=== PATIENT | male | born 1970 | race Caucasian/White ===

== ENCOUNTER 2024-09-06 07:13 | Inpatient (IN) ==
--- NOTE | 2024-09-06 07:36 | Emergency Department Note ---
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 Minimal history aware on patient as he is acutely psychotic and altered on arrival. Appears he is from [place] and he may or may not be on olanzapine as an outpatient per pharmacy review. Patient was initially given some IV Ativan with mild improvement but continued to be tangential walking around the rooms and trying to escape. He was given initial 5 mg of Zyprexa without much improvement thus 10 mg were given and he did seem a bit calmer. Laboratory workup is remarkable for an elevated CK consistent with him likely having not eaten for several days and walking around in the cold. No evidence of trauma by examination and police report there is no evidence of trauma to the vehicle that he had been in. CT of the head was obtained was unremarkable. Other laboratory workup shows mildly elevated LFTs nonspecific significant given the CK elevation. In the setting of acute psychosis but minimal known history and the abnormal labs and think he requires further medical workup. At this point I do not feel it would be safe to be allowing the patient to discharge to her own recognizance as he is unable to understand his current situation. Triage/Nursing Notes reviewed by Me Differential:Mood disorder, infection, hypoglycemia, electrolyte abnormalities, cardiac sources, intracerebral event, toxicologic, trauma, neurologic, as well as other pathologies. Vital Signs: reviewed and remarkable for hypertensive, tachycardic on arrival Interventions: Normal saline bolus 1 L IV x 2, Ativan 1 mg and Ativan 2 mg IV, Zyprexa 5 mg and then 10 mg p.o. Labs:ED labs Reviewed by me and remarkable for elevated CK, mildly elevated LFTs Imaging:CT of the head without contrast as per my informal interpretation there is no intracranial hemorrhage or mass effect appreciated EKG:As per my interpretation. Indication altered mental status. Sinus tachycardia at 113 bpm QTc of 463. There is no ectopy nor ischemia. No previous for comparison Cardiac/Tele Monitoring: Cardiac Monitoring: An Order was placed for continuous cardiac monitoring. The monitor shows a rate of 110 with a sinus tach rhythm. Consults:Dr Gisela ARROYO Hospitalist. Case management did evaluate the patient agrees with acute psychosis and does not seem capable of understanding situation or making decisions at this time. I concur with this assessment. Plan: Disposition:Hospitalization. Condition: Good History of Present Illness: 54-year-old gentleman arrives for evaluation mental health. Patient was reportedly ambulating down the road leaving his car behind him when police came to him. Patient with minimal lucidity and difficult to get full history though seems he may have stopped his medications for at least the last week. Patient reporting having driven all over the country unclear whether this is accurate or not. No reported trauma or injuries. Patient without any complaints. Patient is relatively all over the place with regards to speaking and getting actual history is quite difficult. Past Medical History: Unknown though seems underlying bipolar disorder based on patient's statement Home Medications: Possibly olanzapine, rosuvastatin, trazodone per outpatient records Allergies:nkda Vitals:Blood Pressure: 151/97, Pulse 126, RR 20, T 36.6C, O2 96% on RA Physical Exam: GENERAL: Patient is unkempt, anxious, agitated appearing and in mild distress. RESPIRATORY: No dyspnea. Clear to auscultation and equal bilaterally. CARDIOVASCULAR: Regular rate and rhythm.No murmur appreciated. EXTREMITIES: Normal motion all extremities, no cyanosis, no edema. NEUROLOGIC: Alert but not oriented. No focal neurologic deficits appreciated SKIN: No rash, no jaundice, no diaphoresis. PSYCH: Patient just traveled tangential getting lost and thought looking off into space. Denies suicidal homicidal ideation. Cranial nerves grossly intact GCS: 15 ED Course: Times/Reassessments: Gradually improving agitation though continued psychosis. Sajan Del Angel MD Past Med/Surg History Problem List (Updated 09/06/24 @ 13:14 by Sajan Del Angel MD) Rhabdomyolysis (Acute) Acute psychosis (Acute) Acute psychosis Acute sinusitis Transaminitis Elevated WBCs Rhabdomyolysis Altered mental state Medical History (Updated 09/06/24 @ 13:14 by Sajan Del Angel MD) Medical history unknown Surgical History (Updated 09/06/24 @ 12:51 by Nael Higgins MD) Surgical history unknown Social History Smoking Status: Current every day smoker Preferred Language: Slovak Feels Safe at Home: Yes Allergies Allergies Allergy/AdvReac Type Severity Reaction Status Date / Time Unable to Assess Allergy Unverified 09/06/24 09:25 Home Meds Home Medications Medication Instructions Recorded Confirmed olanzapine 20 mg tablet 20 mg PO DAILY 09/06/24 09/06/24 rosuvastatin 10 mg tablet 10 mg PO DAILY 09/06/24 09/06/24 trazodone 100 mg tablet 100 mg PO HS 09/06/24 09/06/24 Results & Data (ED) Vital Signs Vital Signs - 24 hr 09/06/24 07:18 09/06/24 07:59 09/06/24 07:59 Temperature 36.6 C Temperature Source Temporal Artery Scan Pulse Rate 126 H Pulse Rate [Apical] 102 H Pulse Rhythm [Apical] Pulse Strength [Apical] Respiratory Rate 20 32 H Respiratory Effort / Characteristics Non-Labored Spontaneous Respiratory Depth Normal Respiratory Pattern Blood Pressure 151/97 H Blood Pressure [Right Arm] 136/89 Blood Pressure Mean 115 Blood Pressure Mean [Right Arm] 104 Blood Pressure Position [Right Arm] Pulse Oximetry 96 95 96 Oxygen Delivery Method Room Air Room Air Room Air Sepsis Recent Fever Within 48 Hours No Sepsis New/Unexplained Change in Mental Status N/A Sepsis Action Taken by Nursing No Action Required 09/06/24 08:03 09/06/24 09:37 09/06/24 11:40 Temperature 36.8 C Temperature Source Oral Pulse Rate 106 H Pulse Rate [Apical] 104 H 116 H Pulse Rhythm [Apical] Regular Pulse Strength [Apical] Normal Respiratory Rate 19 20 Respiratory Effort / Characteristics Non-Labored Spontaneous Non-Labored Respiratory Depth Normal Normal Respiratory Pattern Regular Blood Pressure Blood Pressure [Right Arm] 134/89 140/84 Blood Pressure Mean Blood Pressure Mean [Right Arm] 104 102 Blood Pressure Position [Right Arm] Semi-fowlers Sitting Pulse Oximetry 96 96 Oxygen Delivery Method Room Air Room Air Sepsis Recent Fever Within 48 Hours Sepsis New/Unexplained Change in Mental Status Sepsis Action Taken by Nursing Laboratory Data 09/06/24 07:55 09/06/24 07:55 Lab Results 09/06/24 09/06/24 09/06/24 Range/Units 07:36 07:55 07:59 WBC 13.93 H (4.8-10.8) K/ul RBC 4.74 (4.70-6.10) M/uL Hgb 15.9 (14.0-18.0) g/dl Hct 46.5 (42.0-52.0) % MCV 98.1 (80.0-100.0) fL MCH 33.5 (25.0-34.0) pg MCHC 34.2 (32.0-36.0) g/dL RDW Std Deviation 54.1 H (36.4-46.3) fL RDW Coeff of Justin 14.9 H (11.5-14.5) % Plt Count 171 (130-400) K/uL MPV 10.7 (9.4-12.4) fL Immature Gran % (Auto) 0.8 % Neut % (Auto) 82.5 % Lymph % (Auto) 5.3 % [place] % (Auto) 10.9 % Eos % (Auto) 0.1 % Baso % (Auto) 0.4 % Neut # (Auto) 11.50 H (1.40-6.50) K/uL Lymph # (Auto) 0.74 L (1.20-3.40) K/uL [place] # (Auto) 1.52 H (0.11-0.59) K/uL Eos # (Auto) 0.01 (0.00-0.50) K/uL Baso # (Auto) 0.05 (0.00-0.20) K/uL Immature Gran # (Auto) 0.11 (0.01-0.20) K/uL Sodium 142 (136-145) mmol/L Potassium 4.4 (3.5-5.1) mmol/L Chloride 102 (98-107) mmol/L Carbon Dioxide 25 (21-32) mmol/L Anion Gap 15 H (3-11) BUN 14 (6-23) mg/dl Creatinine 0.85 (0.6-1.4) mg/dl Est Cr Clr Drug Dosing 102.1 ml/min eGFR 103.90 BUN/Creatinine Ratio 16.5 (10-20) Glucose 88 (70-99(Fasting)) mg/dl POC Glucose 92 (70-99) mg/dl Calcium 9.9 (8.6-10.3) mg/dl Total Bilirubin 1.6 H (0.2-1.0) mg/dl AST 105 H (13-39) U/L ALT 129 H (7-52) U/L Alkaline Phosphatase 91 (34-104) U/L Total Creatine Kinase 1022 H (30-223) U/L C-Reactive Protein 4.99 H (0-0.5) mg/dl Total Protein 8.3 (6.0-8.3) gm/dl Albumin 4.8 (3.4-5.0) gm/dl Globulin 3.5 (2.5-4.0) gm/dl Albumin/Globulin Ratio 1.4 (0.9-2) Procalcitonin 0.25 (0-0.5) ng/ml TSH 2.607 (0.300-4.500) uIu/ml Salicylates < 3.0 L (3.0-30) mg/dl Acetaminophen < 3 L (10-30) ug/ml Valproic Acid < 10 L (50-100) mcg/ml [place] < 0.1 L (0.6-1.2) mmol/L Ethyl Alcohol mg/dL < 10.0 (<10.0) mg/dl SARS-CoV-2, RNA, NAAT NEGATIVE (NEGATIVE) Administered Medications Discontinued Medications Sodium Chloride (Nss) 1,000 mls @ 999 mls/hr IV .Q1H1M ONE Stop: 09/06/24 08:34 Last Infusion: 09/06/24 09:02 Dose: Infused Documented By: Admin: 09/06/24 07:56 Dose: 999 mls/hr Documented By: OLIVA Sodium Chloride (Nss) 1,000 mls @ 999 mls/hr IV .Q1H1M ONE Stop: 09/06/24 10:57 Last Infusion: 09/06/24 12:42 Dose: Infused Documented By: Admin: 09/06/24 11:17 Dose: 999 mls/hr Documented By: STEPH Lorazepam (Lorazepam 1 Mg/1 Ml Syr Ed Inj Use) 1 mg IV ONE STA Stop: 09/06/24 07:35 Last Admin: 09/06/24 07:56 Dose: 1 mg Documented By: OLIVA Lorazepam (Lorazepam 1 Mg/1 Ml Syr Ed Inj Use) 2 mg IV ONE STA Stop: 09/06/24 08:59 Last Admin: 09/06/24 09:02 Dose: 2 mg Documented By: OLIVA Olanzapine (Olanzapine 5 Mg Tablet) 5 mg PO NOW STA Stop: 09/06/24 09:18 Last Admin: 09/06/24 09:33 Dose: 5 mg Documented By: ELISHA Olanzapine (Olanzapine 10 Mg Tab) 10 mg PO NOW STA Stop: 09/06/24 10:54 Last Admin: 09/06/24 11:38 Dose: 10 mg Documented By: STEPH Imaging Data Radiologist's Impression: Head CT 09/06/24 07:34 CT head/brain wo con CLINICAL HISTORY: 54 years-old Male with ams. Acutely altered mental status TECHNIQUE: Multiple axial CT images of the head were obtained without contrast. A dose lowering technique was utilized adhering to the principles of ALARA. CT DOSE: 625.8 mGy.cm COMPARISON: None. FINDINGS: No acute intracranial hemorrhage, midline shift, intracranial mass, hydrocephalus, territorial ischemia or abnormal extra-axial collection. The calvarium is intact. Moderate mucosal thickening with air-fluid level on the right maxillary sinus. Mastoid air cells are clear. Unremarkable soft tissues and orbits. IMPRESSION: 1. No acute intracranial abnormality. 2. Acute on chronic right maxillary sinus disease. ACT 112: Negative or not required by law. The above report was generated using voice recognition software. It may contain grammatical, syntax or spelling errors. Electronically signed by: Jadon Penn M.D. 09/06/2024 9:05 AM Chest X-Ray 09/06/24 11:57 XR chest 1V portable HISTORY: 54 years-old Male altered mental status change acutely altered mental status COMPARISON: None TECHNIQUE: AP view the chest FINDINGS: Cardiac silhouette is upper limits of normal in size. No pneumothorax. Possible pulmonary vascular congestion. Mild ill-defined bibasilar densities with blunting of the costophrenic angles. Bones appear grossly intact. IMPRESSION: 1. Cardiomegaly with pulmonary vascular congestion. 2. Trace pleural effusions with mild bibasilar densities, likely atelectatic. ACT 112: Negative or not required by law. The above report was generated using voice recognition software. It may contain grammatical, syntax or spelling errors. Electronically signed by: Jadon Penn M.D. 09/06/2024 12:21 PM Discharge Plan Visit Data Chief Complaint: Altered Mental Status Stated Complaint: FOUND WALKING IN THE COLD,BIPOLAR DISORDER ED Provider: Sajan Del Angel Discharge Problem: Acute psychosis, Rhabdomyolysis Forms Stand Alone Forms: [facility] Prescriptions Prescriptions: No Action trazodone 100 mg tablet 100 mg PO HS olanzapine 20 mg tablet 20 mg PO DAILY rosuvastatin 10 mg tablet 10 mg PO DAILY Referrals Referrals: PCP,NO [Primary Care Provider] - Discharge Problem: Rhabdomyolysis Qualifiers: Rhabdomyolysis type: non-traumatic Qualified Code(s): M62.82 - Rhabdomyolysis
[2024-09-06] MEDS: LORazepam 1 MG/1 ML SYR ED Inj Use IV STA ×2 (07:56→09:02)
[2024-09-06] MEDS: SODIUM CHLORIDE 0.9% 1,000 ML IV ONE ×2 (07:56→11:17)
[2024-09-06 08:18] LABS: Basophils # (auto) 0.05 K/uL (0.00-0.20); Basophils % (auto) 0.4 %; Eosinophils # (auto) 0.01 K/uL (0.00-0.50); Eosinophils % (auto) 0.1 %; Hematocrit (blood only) 46.5 % (42.0-52.0); Hemoglobin 15.9 g/dl (14.0-18.0); Immature Granulocytes # (auto) 0.11 K/uL (0.01-0.20); Immature Granulocytes % (auto) 0.8 %; Lymphocytes # (auto) 0.74 K/uL (1.20-3.40); Lymphocytes % (auto) 5.3 %; Mean Corpuscular Hemoglobin 33.5 pg (25.0-34.0); Mean Corpuscular Hgb Conc 34.2 g/dL (32.0-36.0); Mean Corpuscular Volume 98.1 fL (80.0-100.0); Mean Platelet Volume 10.7 fL (9.4-12.4); Monocytes # (auto) 1.52 K/uL (0.11-0.59); Monocytes % (auto) 10.9 %; Neutrophils % (auto) 82.5 %; Platelet Count 171 K/uL (130-400); RDW Coefficient of Variation 14.9 % (11.5-14.5); RDW Standard Deviation 54.1 fL (36.4-46.3); Red Blood Count 4.74 M/uL (4.70-6.10); White Blood Count 13.93 K/ul (4.8-10.8)
[2024-09-06 08:34] LABS: Albumin Globulin Ratio 1.4 (0.9-2); Albumin Level 4.8 gm/dl (3.4-5.0); BUN Creatinine Ratio 16.5 (10-20); Bilirubin,Total 1.6 mg/dl (0.2-1.0); Calcium 9.9 mg/dl (8.6-10.3); Creatinine Clr Calc Pharmacy 102.1 ml/min; Globulin 3.5 gm/dl (2.5-4.0); Potassium 4.4 mmol/L (3.5-5.1); Total Protein 8.3 gm/dl (6.0-8.3)
[2024-09-06 08:49] LABS: Thyroid Stimulating Hormone 2.607 uIu/ml (0.300-4.500)
[2024-09-06 08:50] LABS: Acetaminophen < 3 ug/ml (10-30); Salicylate < 3.0 mg/dl (3.0-30)
--- NOTE | 2024-09-06 09:06 | CT Scan Report ---
CT head/brain wo con CLINICAL HISTORY: 54 years-old Male with ams. Acutely altered mental status TECHNIQUE: Multiple axial CT images of the head were obtained without contrast. A dose lowering tech nique was utilized adhering to the principles of ALARA. CT DOSE: 625.8 mGy.cm COMPARISON: None. FINDINGS: No acute intracranial hemorrhage, midline shift, intracranial mass, hydrocephalus, territorial ischem ia or abnormal extra-axial collection. The calvarium is intact. Moderate mucosal thickening with air-fluid level on the right maxillary sin us. Mastoid air cells are clear. Unremarkable soft tissues and orbits. IMPRESSION: 1. No acute intracranial abnormality. 2. Acute on chronic right maxillary sinus disease. ACT 112: Negative or not required by law. The above report was generated using voice recognition software. It may contain grammatical, syntax o r spelling errors. Electronically signed by: Jadon Penn M.D. 09/06/2024 9:05 AM
[2024-09-06 09:14] LABS: Lithium < 0.1 mmol/L (0.6-1.2); Valproic Acid < 10 mcg/ml (50-100)
[2024-09-06] MEDS: OLANZapine 5 MG TABLET PO STA (09:33)
[2024-09-06] MEDS: OLANZapine 10 MG TAB PO STA (11:38)
--- NOTE | 2024-09-06 12:21 | History & Physical Report ---
Date of Service September 06, 2024 Assessment & Plan (1) Altered mental state: Plan: Disorientated to place and time. Disordered thinking. Suspected acute psychosis (possibly not taking his usual olanzapine) - 15mg PO olanzapine given in ER, will give additional 5mg to make up his usual 20mg dose, consult psychiatry Possible exacerbated by acute sinusitis - see below Salicylate, acetaminophen, valproic acid, lithium, alcohol levels were negative UA pending collection Urine drug profile pending collection (2) Acute sinusitis: Plan: Seen in CT. Patient history unreliable. Biofire PCR ordered Start Augmentin 875mg PO BID as possible cause of acute psychosis (3) Rhabdomyolysis: Plan: CK 1022 on admission IV fluids (4) Elevated WBCs: Plan: Possible stress reaction, CRP and procalcitonin added to prior labs, if procalcitonin elevated will get blood cultures (5) Transaminitis: Plan: No abdominal pain on exam Suspect related to rhabdo, repeat levels in AM with INR, Plt normal Hold statin (6) Acute psychosis: Plan VTE Prophylaxis - Lovenox 40mg SQ daily Diet -regular Disposition - admit to med/tele Admission and Anticipated Discharge Date Admission Date: September 06, 2024 History of Present Illness Chief Complaint: Altered mental state Primary Care Provider: NO PCP Víctor Pathak is a 54 year ol male who presents to the ER with altered mental state after being picked up by police [place] [address]. He told triage he was driving from [place] to [facility] and drinking a lot of [employer]. He tells me he is the in the emergency room due to dry mouth as he was in the [facility] in [place]. When asked directly why he came to [place], [place] he tells me he just went for a drive. He is able to remember his medications of olanzapine and trazodone and tells me he has been taking them. He does remember he was taking gabapentin previously when prompted but he stopped as it wasn't working and he thinks he was on it for psoriasis. When asked about his doctors names he is able to tell me the name of his family physician Dr Durand. On review of external pharmacy list he appears to have picked up prescription for olanzapine, rosuvastatin and trazodone on September 04 in [place], [place] which appears to be his regular pharmacy store. His psychiatric medications are p rescribed by [facility] of [facility] Jacobsen MD. I left a message on the answering system but there is no one picking up the phone at time of admission ([phone]). His family physician suspected to be Dr Leti Durand MD also in [place], [place] based on prior prescriptions for pregabalin (last picked up 30 day prescription in May for 50mg PO daily), gabapentin (prior to the pregabalin at 300mg PO TID) and terbinafine (prescription from January to March). Left message with PCP office ([phone]) in addition to call back. Allergies Allergy/AdvReac Type Severity Reaction Status Date / Time Unable to Assess Allergy Unverified 09/06/24 09:25 Home Medications Medication Instructions Recorded Confirmed Type olanzapine 20 mg tablet 20 mg PO DAILY 09/06/24 09/06/24 History rosuvastatin 10 mg tablet 10 mg PO DAILY 09/06/24 09/06/24 History trazodone 100 mg tablet 100 mg PO HS 09/06/24 09/06/24 History Past Med/Surg History Problem List (Updated 09/06/24 @ 12:51 by Nael Higgins MD) Acute psychosis Acute sinusitis Transaminitis Elevated WBCs Rhabdomyolysis Altered mental state Medical History (Updated 09/06/24 @ 12:51 by Nael Higgins MD) Medical history unknown Surgical History (Updated 09/06/24 @ 12:51 by Nael Higgins MD) Surgical history unknown Social History Smoking Status: Current every day smoker Preferred Language: Yakut Feels Safe at Home: Yes Review of Systems Review of Systems: All systems reviewed & are unremarkable except as noted in HPI & below Physical Exam Constitutional: WD/WN, vitals as above ENMT: external ear and nose normal, oropharynx normal Respiratory: normal respiratory effort, lungs clear to auscultation Cardiovascular: RRR, no murmur, no edema Gastrointestinal (Abdomen): normal bowel sounds, soft, nontender, no hepatosplenomegaly Skin: no rashes, warm and dry (no areas of cellulitis seen) Psychiatric: Orientation: alert and oriented to person; + not oriented to place and + not oriented to time Eye Contact: + fair eye contact Thought Process: + tangential thought process Results & Data Results & Data Vital Signs (Past 12 Hours) Vital Signs Temp Pulse Pulse Resp BP BP Pulse Ox 09/06/24 11:40 36.8 C 116 H 20 140/84 96 09/06/24 09:37 104 H 19 134/89 96 09/06/24 08:03 106 H 09/06/24 07:59 102 H 32 H 136/89 96 09/06/24 07:59 95 09/06/24 07:18 36.6 C 126 H 20 151/97 H 96 O2 Del Method 09/06/24 11:40 Room Air 09/06/24 09:37 Room Air 09/06/24 08:03 09/06/24 07:59 Room Air 09/06/24 07:59 Room Air 09/06/24 07:18 Room Air Laboratory Results Abnormal lab results 09/06/24 Range/Units 07:55 WBC 13.93 H (4.8-10.8) K/ul RDW Std Deviation 54.1 H (36.4-46.3) fL RDW Coeff of Justin 14.9 H (11.5-14.5) % Neut # (Auto) 11.50 H (1.40-6.50) K/uL Lymph # (Auto) 0.74 L (1.20-3.40) K/uL [place] # (Auto) 1.52 H (0.11-0.59) K/uL Anion Gap 15 H (3-11) Total Bilirubin 1.6 H (0.2-1.0) mg/dl AST 105 H (13-39) U/L ALT 129 H (7-52) U/L Total Creatine Kinase 1022 H (30-223) U/L Salicylates < 3.0 L (3.0-30) mg/dl Acetaminophen < 3 L (10-30) ug/ml Valproic Acid < 10 L (50-100) mcg/ml [place] < 0.1 L (0.6-1.2) mmol/L Diagnostic Findings CT head/brain wo con CLINICAL HISTORY: 54 years-old Male with ams. Acutely altered mental status TECHNIQUE: Multiple axial CT images of the head were obtained without contrast. A dose lowering technique was utilized adhering to the principles of ALARA. CT DOSE: 625.8 mGy.cm COMPARISON: None. FINDINGS: No acute intracranial hemorrhage, midline shift, intracranial mass, hydrocephalus, territorial ischemia or abnormal extra-axial collection. The calvarium is intact. Moderate mucosal thickening with air-fluid level on the right maxillary sinus. Mastoid air cells are clear. Unremarkable soft tissues and orbits. IMPRESSION: 1. No acute intracranial abnormality. 2. Acute on chronic right maxillary sinus disease. XR chest 1V portable HISTORY: 54 years-old Male altered mental status change acutely altered mental status COMPARISON: None TECHNIQUE: AP view the chest FINDINGS: Cardiac silhouette is upper limits of normal in size. No pneumothorax. Possible pulmonary vascular congestion. Mild ill-defined bibasilar densities with blunting of the costophrenic angles. Bones appear grossly intact. IMPRESSION: 1. Cardiomegaly with pulmonary vascular congestion. 2. Trace pleural effusions with mild bibasilar densities, likely atelectatic. Medications Administered ER medications given: Lorazepam 1 mg IV Normal saline 1 L bolus Lorazepam 2 mg IV Olanzapine 5 mg p.o. Normal saline 1 L bolus Olanzapine 10 mg p.o. ECG Rate (beats per minute): 113 Rhythm: sinus tachycardia Findings: no acute ischemic change Comparison ECG Date: no prior available Code Status & VTE Plan Code Status Full - presumed, patient with altered mental state VTE Prophylaxis Plan VTE Prophylaxis will be ordered: Yes PG Care Time/CCT Total # of Minutes Spent Total Time Spent with Patient: Total time spent is greater than 50% in coordination of care (as documented) at patient's floor/unit and/or counseling patient: Coding Level of Care Code 19432 INT INP/OBS CARE 3/75MIN Diagnoses Disorientation R41.0 Altered mental status type: disorientation Acute non-recurrent maxillary sinusitis J01.00 Sinusitis location: maxillary Recurrence: non-recurrent Non-traumatic rhabdomyolysis M6.82 Rhabdomyolysis type: non-traumatic Elevated WBCs D72.829 Transaminitis R74.01 Acute psychosis F23 (1) Altered mental state Altered mental status type: disorientation Qualified Code(s): R41.0 - Disorientation, unspecified (2) Acute sinusitis Sinusitis location: maxillary Recurrence: non-recurrent Qualified Code(s): J01.00 - Acute maxillary sinusitis, unspecified (3) Rhabdomyolysis Rhabdomyolysis type: non-traumatic Qualified Code(s): M62.82 - Rhabdomyolysis
--- NOTE | 2024-09-06 12:22 | XRay Report ---
XR chest 1V portable HISTORY: 54 years-old Male altered mental status change acutely altered mental status COMPARISON: None TECHNIQUE: AP view the chest FINDINGS: Cardiac silhouette is upper limits of normal in size. No pneumothorax. Possible pulmonary vascular co ngestion. Mild ill-defined bibasilar densities with blunting of the costophrenic angles. Bones appear grossly intact. IMPRESSION: 1. Cardiomegaly with pulmonary vascular congestion. 2. Trace pleural effusions with mild bibasilar densities, likely atelectatic. ACT 112: Negative or not required by law. The above report was generated using voice recognition software. It may contain grammatical, syntax o r spelling errors. Electronically signed by: Jadon Penn M.D. 09/06/2024 12:21 PM
[2024-09-06 12:55] LABS: C Reactive Protein 4.99 mg/dl (0-0.5)
[2024-09-06] MEDS: OLANZapine 5 MG TABLET PO ONE (13:14)
[2024-09-06 13:29] LABS: Appearance Urine Clear (Clear); Bacteria Urine Automated None Seen (None Seen); Bilirubin Urine Negative (Negative); Blood Urine Negative (Negative); Cast Urine Automated 0-2 /lpf (0-2); Color Urine Dark Yellow; Epithelial Cell Urine Auto 0-2 /hpf (0-2); Glucose Urine UA Negative (Negative); Ketones Urine 4+ (Negative); Leukocyte Esterase Urine Negative (Negative); Nitrite Urine Negative (Negative); Protein Urine 1+ (Negative); RBC Urine Automated 0-2 /hpf (0-2); Urobilinogen Urine Negative (Negative); WBC Urine Automated 0-5 /hpf (0-5)
[2024-09-06 13:58] LABS: Adenovirus PCR Not Detected (NotDetected); Bordetella parapertussis PCR Not Detected (NotDetected); Bordetella pertussis PCR Not Detected (NotDetected); Chlamydia pneumoniae PCR Not Detected (NotDetected); Coronavirus 229E PCR Not Detected (NotDetected); Coronavirus CoV-2 (COVID19)PCR Not Detected (NotDetected); Coronavirus HKU1 PCR Not Detected (NotDetected); Coronavirus NL63 PCR Not Detected (NotDetected); Coronavirus OC43PCR Not Detected (NotDetected); Human Metapneumovirus PCR Not Detected (NotDetected); Influenza A PCR Not Detected (NotDetected); Influenza B PCR Not Detected (NotDetected); Mycoplasma pneumoniae PCR Not Detected (NotDetected); Parainfluenza Virus 1 PCR Not Detected (NotDetected); Parainfluenza Virus 2 PCR Not Detected (NotDetected); Parainfluenza Virus 3 PCR Not Detected (NotDetected); Parainfluenza Virus 4 PCR Not Detected (NotDetected); Respiratory Syncytial VirusPCR Not Detected (NotDetected); Rhinovirus/Enterovirus PCR Not Detected (NotDetected)
[2024-09-06 14:11] LABS: Amphetamines+Metham, Urine Neg (Neg); Barbiturates, Urine Neg (Neg); Benzodiazepine, Urine Neg (Neg); Cocaine, Urine Neg (Neg); Fentanyl, Urine Neg (Neg); MDMA (Ecstacy), Urine Neg (Neg); Marijuana, Urine Neg (Neg); Methadone, Urine Neg (Neg); Opiate, Urine Neg (Neg); Phencyclidine, Urine Neg (Neg)
[2024-09-06] MEDS: SODIUM CHLORIDE 0.9% 1,000 ML IV SCH (18:01)
[2024-09-06] MEDS: AMOXICILLIN/CLAVULANATE 875 MG TAB PO SCH (18:18)
[2024-09-06] MEDS: ENOXAPARIN INJ 40 MG/0.4 ML SYR SQ SCH (20:34)
[2024-09-06] MEDS: OLANZapine 5 MG TABLET PO PRN (20:52)
--- NOTE | 2024-09-06 21:27 | Electrocardiogram Report ---
Test Reason : Blood Pressure : */* mmHG Vent. Rate : 113 BPM Atrial Rate : 113 BPM P-R Int : 188 ms QRS Dur : 78 ms QT Int : 338 ms P-R-T Axes : 41 62 54 degrees QTcB Int : 463 ms Sinus tachycardia Possible Left atrial enlargement Anterior infarct , age undetermined Abnormal ECG No previous ECGs available Confirmed by Antwon Vasquez ([id number]) on 09/06/2024 9:26:41 PM Referred By: REFERRED SELF Confirmed By: Antwon Vasquez
--- NOTE | 2024-09-07 07:36 | Hospitalist Progress Note ---
Date of Service September 07, 2024 Assessment & Plan (1) Altered mental state: (2) Acute sinusitis: (3) Rhabdomyolysis: (4) Transaminitis: (5) Acute psychosis: Plan #Altered mental status #Acute Psychosis vs. Dissociative Fugue vs. Kassandra vs. Wernicke's Encephalopathy - ED course: disoriented to place and time; disordered thinking; possible medical noncompliance -- Given 20 mg of Olanzapine PO and 3 mg of Lorazepam IV -- Drug urine screen (-) and viral panel (-) -- Head CT: chronic right maxillary sinusitis -- CXR: cardiomegaly with pulmonary congestion and possible atelectasis -- UA: notable for 4+ ketones - Psychiatry onboard - Attempting to consult [place] providers & contact ex- for corroboration - Olanzapine 20 mg QD - Thiamine 500 mg IV TID - Consider BID/TID mental status checks to get baseline #Sinusitis - Seen in CT. Patient history unreliable. - Negative Biofire PCR - Augmentin 875mg PO BID as possible cause of acute psychosis #Rhabdomyolysis - Possibly due to limited PO intake and walking in the cold - CK 1022 on admission -- Downtrending 414 (09/07) - IV fluids #Transaminitis - No abdominal pain on admitting exam - Suspect related to rhabdomyolysis - INR and Plt: WNL - Statin restarted (09/07) VTE Prophylaxis - Lovenox 40mg SQ daily Diet -regular Disposition - med/tele Admission and Anticipated Discharge Date Admission Date: September 06, 2024 Supervising Physician Co-Signing Physician Notes I personally examined the patient and verified all alvarado points of history and exam, discussed case, and agree with decision making with Aaliyah Marcus MS4 and Dr Street No somatic complaints. Confused and does not really know where he is or why he is here. Is vaguely able to recall some events of his life noting that he believes he is currently unemployed. Notes that we could reach out to contact h is ex- if we are able to reach her and gave her phone number to psychiatry. Vitals noted, in general he is awake disoriented but pleasant calm no distress. HEENT normocephalic atraumatic mucous membranes moist. Breathing unlabored no accessory muscle use good effort. Skin without rashes pallor or icterus. Neuro without focal deficits. Oriented to person, does not know place or situation confusion/altered mental statusbroad differentialdoes not appear to be manic, does not appear to be responding to external stimuli. Transient global amnesia considered but in my experience these are much more short-lived than his current episode. Wernicke/course of cough considered and thiamine started. Polypharmacy considered but he does not appear sedated/slurring/other findings that would be anticipated. Fugue state considered. Need to continue to follow closely. Appreciate psychiatry input. Subjective Mr. Alston was seen at bedside with Dr. Pozo, Dr. Street, and Dr. Vela. He states that he feels confused. He mentioned that he does not know how he got here, but is a resident of [place]. He was unable to descri be our location, for which he was oriented to the location being [facility] in [place], [place]. 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 When asked about family or friend contacts, he requested that his ex- be updated about his situation. Otherwise, he has no further questions, comments, or concerns. Review of Systems Review of Systems: Per HPI Physical Exam Constitutional: Laying comfortably in bed In no apparent distress Appeared tired Eyes: Looked at speaking persons without noticeable ophthalmoplegia ENMT: No thyromegaly [place] midline Respiratory: Respiratory effort appropriate for situation Conversational without shortness of breath No accessory respiratory muscle use Psychiatric: Orientation: alert and oriented to person Apperance: + disheveled Eye Contact: good eye contact Motor Behavior: no abnormal motor movements Speech: normal rate/rhythm/volume of speech Affect: + flat affect Thought Process: clear/coherent thought process Appears thoughts are logical and linear Memory to recent and distant events limited Results & Data Results & Data Vital Signs (Past 12 Hours) Vital Signs Pulse Resp BP Pulse Ox O2 Del Method 09/07/24 00:05 75 16 109/75 96 Room Air (1) Altered mental state Altered mental status type: disorientation Qualified Code(s): R41.0 - Disorientation, unspecified (2) Acute sinusitis Recurrence: non-recurrent Sinusitis location: maxillary Qualified Code(s): J01.00 - Acute maxillary sinusitis, unspecified (3) Rhabdomyolysis Rhabdomyolysis type: non-traumatic Qualified Code(s): M62.82 - Rhabdomyolysis
[2024-09-07 09:07] LABS: Basophils # (auto) 0.04 K/uL (0.00-0.20); Basophils % (auto) 0.4 %; Eosinophils # (auto) 0.14 K/uL (0.00-0.50); Eosinophils % (auto) 1.6 %; Hematocrit (blood only) 42.4 % (42.0-52.0); Hemoglobin 14.5 g/dl (14.0-18.0); Immature Granulocytes # (auto) 0.02 K/uL (0.01-0.20); Immature Granulocytes % (auto) 0.2 %; Lymphocytes # (auto) 2.31 K/uL (1.20-3.40); Lymphocytes % (auto) 25.9 %; Mean Corpuscular Hemoglobin 33.1 pg (25.0-34.0); Mean Corpuscular Hgb Conc 34.2 g/dL (32.0-36.0); Mean Corpuscular Volume 96.8 fL (80.0-100.0); Mean Platelet Volume 10.3 fL (9.4-12.4); Monocytes # (auto) 1.11 K/uL (0.11-0.59); Monocytes % (auto) 12.4 %; Neutrophils % (auto) 59.5 %; Platelet Count 173 K/uL (130-400); RDW Coefficient of Variation 14.7 % (11.5-14.5); RDW Standard Deviation 52.6 fL (36.4-46.3); Red Blood Count 4.38 M/uL (4.70-6.10); White Blood Count 8.92 K/ul (4.8-10.8)
[2024-09-07 09:24] LABS: Albumin Globulin Ratio 1.3 (0.9-2); Albumin Level 3.9 gm/dl (3.4-5.0); BUN Creatinine Ratio 19.4 (10-20); Bilirubin,Total 1.2 mg/dl (0.2-1.0); Calcium 8.7 mg/dl (8.6-10.3); Creatinine Clr Calc Pharmacy 120.5 ml/min; Globulin 3.1 gm/dl (2.5-4.0); Potassium 3.7 mmol/L (3.5-5.1)
[2024-09-07] MEDS: THIAMINE HCL 500 MG in SODIUM CHLORIDE 0.9% 50 ML IV SCH (12:18)
--- NOTE | 2024-09-07 13:03 | Psychiatric Consultation ---
Date of Consultation September 07, 2024 Impression / Recommendations Impression Case Summary: This is a 53-year-old male with a history of bipolar disorder who presents with acute onset memory loss and confusion. He is unable to recall the circumstances that led to his current admission or any recent events. The patient has a history of one prior psychiatric hospitalization for manic bipolar disorder and reports that he is currently prescribed Olanzapine, Trileptal, and Thorazine (this is inconsistent with external records, which show that he is taking Olanzapine and Trazodone). He denies suicidal/homicidal ideation or access to firearms. The patient has a significant alcohol use history, consuming 24 beers daily without withdrawal complications. Cognitively, he demonstrates orientation to person, place, and day of week, with 2/3 recall after 5 minutes and intact calculation and spelling abilities. The etiology of his acute memory loss is unclear at this time. Assessment: F31.30 Bipolar disorder, current episode depressed, mild or moderate severity, unspecified F10.20 Alcohol use disorder, moderate R41.3 Other amnesia. Differentials include Korsakoff's syndrome, Transient Global Amnesia. The patient's acute memory loss and confusion warrant further investigation to rule out potential medical etiologies, such as transient global amnesia, Wernicke-Korsakoff syndrome, or other neurological conditions. Medical workup including labs, imaging, and neurology consultation, were reviewed. No signs or symptoms of alcohol withdrawal recorded or reported. Plan Recommend the following labs: - - Thyroid function tests (TSH, free T4) - Vitamin B12 and folate levels - Consider HIV and syphilis testing - Medications: - Continue Olanzapine 20 mg daily for bipolar disorder and anxiety - Restart Trazodone 100mg qhs. - Consider thiamine supplementation given alcohol use history and possible Wernicke-Korsakoff syndrrome. - Consult neurology for further evaluation of acute memory loss and confusion. - Consider EEG if seizure activity suspected. - Evaluate for possible alcohol withdrawal and initiate management protocol if needed- Explore patient's willingness to engage in substance use disorder treatment - Contact patient's ex- for collateral information and assistance with discharge planning - Assess for safety and consider increased level of care if unable to care for self independently. Psychiatric admission not indicated at this time. Consult CM for disposition planning when medically cleared. Overall I spent a total of [75] minutes for this admission including review of chart records, review of labwork, direct evaluation of the patient, counseling the patient, ordering medication, risk assessment, discussion with the psychiatric liason RN and documentation in the electronic health record. 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 Pt brought in by police [place] [address]. Psychiatry was consulted to evaluate for altered mental state pt as he was tangential and not making sense on admission. Chief Complaint "I don't know why I'm here". 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 Pt brought in by police after [place] [address]. [address] [place] [address] and was found walking on the road near his parked car. He told police he was driving from [place] to [facility] and was drinking a lot of [employer]. He also reported being in the ER due to dry mouth as he was in the [employer] fire in [facility]. He does not recall how he came to be in [facility] and has no recollection of events leading to his admission. Psychiatry was consulted to evaluate for altered mental state pt as he was tangential and not making sense on admission. In the ED, he was found to have transaminitis, rhabdomyolysis, elevated WBCs, and acute sinusitis. CK was 1022 on admission (down to 414 today). UDS was negative. CT scan negative except for acute on chronic right maxillary sinus disease. CXR showed cardiomegaly with pulmonary vascular congestion. EEG sinus rhythm, no acute ischemia. Serology negative. The patient presents with significant memory loss. He did not know where he was, was unable to recall how he arrived at the current location or any events leading up to his admission. He does recall being on the highway but was unable to recall where he had been or what he was doing prior to admission. Symptoms of memory impairment seem to have onset suddenly, as the patient has no prior history of cognitive issues. The patient has a history of bipolar disorder, diagnosed approximately 3-4 years ago, with symptoms starting about 5 years prior to diagnosis. He reports experiencing both manic and depressive episodes but is unable to provide further details about his manic symptoms. The patient has been admitted to [facility] once, 3-4 years ago, for manic bipolar disorder. He also reports suffering from anxiety and panic attacks in the past. During this admission, no signs of alcohol withdrawal have been noted. The patient reports that he is currently prescribed Olanzapine, Trileptal, and Trazodone for bipolar disorder, which he has been taking consistently until the past 1-2 days. External records review shows that he takes Olanzapine, Trazodone, Pregabalin 50 mg po daily, gabapentin 300 mg tid and terbinafine. He filled his prescription on 09/04/24. He states that he saw his psychiatrist 1 month ago. He denies any recent use of illicit drugs or creative services designer drugs like K2 or Spice. Chicken Tender attempted to reach his psychiatrist practitioner Dr Roosevelt Vo at [facility] ([phone]). Senior Audit Manager stated pt is not being treated at that facility. Attempted to reach Karen Pathak on [phone]. She was not available. Chicken Tender left a message with a number for her to call back. Past Psychiatric History Previous Psych History: Bipolar disorder diagnosed 3-4 years ago, with one prior psychiatric hospitalization at [facility] for manic bipolar disorder. Currently prescribed Olanzapine 20 mg, Trazodone 100mg. Pt also reports being prescribed Thorazine but could not recall the dose. Reports anxiety and panic attacks. No history of suicidal ideation or homicidal ideation. Denies any firearms. Outpatient Services: See above. Previous Psych Admissions: See above Do You Have Access To A Gun?: No History of Previous Suicide Attempt: No Describe Attempts in the Past: N/A Past Medication Trials: Does not recall. Additional Notes: Substance Use History: - Alcohol: Consumes 3-4 beers daily, no reported withdrawal symptoms or complications. In the past he endorses much higher consumption. Denied a history of alcohol related seizures, falls, cognitive impairment. - Marijuana: Historical use, once daily, quantity unknown - Daily smoker. Developmental History: The patient was born in [place], [place]. He left school in 9th grade due to an escalated situation with his father involving the police. The patient ran away from home at that time, at age 15, over a dispute about a house alliance party. No reported history of childhood abuse or development of self-abusive behaviors or eating disorders. The patient has lived in [place] for 30 years. He is currently . He has three adult children. 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 Past Medical History: No reported history of hypertension, diabetes, head trauma, seizures, allergies, surgeries, or fractures.PCP office: Dr Durand ([phone]). Also takes Rosuvastatin 10mg daily Family History: No known family history of dementia or Kaiden's disease. No other details about family psychiatric, medical, or substance use history were provided. Social History: The patient lives alone,is . He has three children. 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 No further details about his social history were provided. Legal History: The patient had a police encounter at age 15 related to a dispute with his father, which led to him running away from home. He denies any other legal issues or history of incarceration. Allergies Allergy/AdvReac Type Severity Reaction Status Date / Time Unable to Assess Allergy Unverified 09/06/24 09:25 Home Medications Medication Instructions Recorded Confirmed Type olanzapine 20 mg tablet 20 mg PO DAILY 09/06/24 09/06/24 History rosuvastatin 10 mg tablet 10 mg PO DAILY 09/06/24 09/06/24 History trazodone 100 mg tablet 100 mg PO HS 09/06/24 09/06/24 History folic acid 1 mg tablet 1 mg PO DAILY #30 tabs 09/09/24 Rx thiamine HCl (vitamin B1) 100 mg 100 mg PO DAILY #30 tabs 09/09/24 Rx tablet Patient History Medical History Medical history unknown Surgical History (Updated 09/06/24 @ 12:51 by Nael Higgins MD) Surgical history unknown Social History Smoking Status: Unknown if ever smoked Hx Alcohol Use: No (unknown) Hx Substance Use: No (unknown) Preferred Language: Faroese Communication Ability: Effective Claim Taker Required: No Beliefs That Will Affect Care: None Current Living Situation Comment: unknown Feels Safe at Home: Yes Assistive Devices: None Physical Exam Psychiatric: Guarded. ? evasive. Did not know where he was or how he came to be here. Orientation: alert and oriented to person; + not oriented to place and + not oriented to time Oriented to month, year, weekday but not to date. Apperance: + disheveled Malodorous, unkempt, halitosis. Eye Contact: good eye contact Motor Behavior: steady gait and station and no abnormal motor movements Speech: normal rate/rhythm/volume of speech Affect: + flat affect Euthymic Thought Process: goal directed thought process, linear/logical thought process and clear/coherent thought process Thought Content: reality based without delusions Suicidal Thoughts: denies suicidal thoughts, denies suicidal plan and denies suicidal intent Homicidal Thoughts: denies homicidal thoughts, denies homicidal plan and denies homicidal intent Denied any Cognition: attention grossly intact and language grossly intact Oriented to person, year, month and day of week - Recalled 2/3 words (dog, tree) after 5 -minute delay - Attention and concentration were intac t. - Accurate calculations for change from $5 and number of quarters in $3.25 - Able to spell "earth" forwards and backwards - Good fund of general knowledge. Vital Signs (Past 24 Hours): Last Vital Signs Temp 36.7 C 09/07/24 12:23 Pulse 68 09/07/24 12:23 Resp 18 09/07/24 12:23 BP 118/67 09/07/24 12:23 Pulse Ox 93 09/07/24 12:23 O2 Del Method Room Air 09/07/24 12:23 Results & Data (PSY) Medications Administered Amoxicillin/Clavulanate Potassium (Amoxicillin/Clavulanate 875 Mg Tab) 1 tab PO BIDM COUNT INCLUDES THE [facility]; Protocol Stop: 09/16/24 16:59 Last Admin: 09/07/24 08:54 Dose: 1 tab Documented By: Admin: 09/06/24 18:18 Dose: 1 tab Documented By: Enoxaparin Sodium (Enoxaparin Inj 40 Mg/0.4 Ml Syr) 40 mg SQ QPM COUNT INCLUDES THE [facility] Stop: 10/06/24 20:59 Last Admin: 09/06/24 20:34 Dose: 40 mg Documented By: LU Thiamine HCl 500 mg/ Sodium (Chloride) 55 mls @ 210 mls/hr IV Q8H COUNT INCLUDES THE [facility] Stop: 09/11/24 11:59 Last Admin: 09/07/24 12:18 Dose: 210 mls/hr Documented By: CEF [place] [address] U Intl Hosp Care Lvl 2 Patient Type New History Comprehensive Exam Comprehensive Medical Decision Making Moderate Complexity Time Spent (min) 75
[2024-09-07] MEDS: OLANZapine 20 MG TABLET PO SCH (13:57)
--- NOTE | 2024-09-07 17:23 | Billing Data ---
Date of Service September 07, 2024 Coding Level of Care Code 63687 SUB INP/OBS CARE 3MIN
[2024-09-07] MEDS: traZODone HCL 100 MG TAB PO SCH (22:27)
[2024-09-08 06:27] LABS: Albumin Globulin Ratio 1.2 (0.9-2); Albumin Level 3.6 gm/dl (3.4-5.0); BUN Creatinine Ratio 16.2 (10-20); Bilirubin,Total 0.8 mg/dl (0.2-1.0); Calcium 8.6 mg/dl (8.6-10.3); Creatinine Clr Calc Pharmacy 115.8 ml/min; Potassium 3.2 mmol/L (3.5-5.1); Total Protein 6.6 gm/dl (6.0-8.3)
[2024-09-08 07:52] LABS: Folate (Folic Acid),Ser orPlas 15.13 ng/ml (>5.38)
[2024-09-08] MEDS: POTASSIUM CHLORIDE CRTAB 20 MEQ TABCR PO ONE (09:10)
--- NOTE | 2024-09-08 12:40 | XRay Report ---
XR orbits for MRI HISTORY: 54 years-old Male Screening for foreign body for MRI screening for MRI COMPARISON: Head CT 09/06/2024 TECHNIQUE: 3 views of the orbits FINDINGS: No metallic foreign body of the orbits. Moderate partial opacification of the right maxillary sinus. No acute facial bone fracture is seen. IMPRESSION: No metallic foreign body of the orbits identified. ACT 112: Negative or not required by law. The above report was generated using voice recognition software. It may contain grammatical, syntax o r spelling errors. Electronically signed by: Jadon Penn M.D. 09/08/2024 12:38 PM
[2024-09-08] MEDS: GADOBUTROL 65ML VIAL IV ONE (13:11)
[2024-09-08] MEDS: OPTIRAY 320 125ml IV ONE (13:30)
--- NOTE | 2024-09-08 13:46 | Magnetic Resonance Report ---
MR brain wo/w con HISTORY: 54 years-old Male amnesia-focus on temporal lobe acute memory loss COMPARISON: Head CT 09/06/2024 TECHNIQUE: Multiplanar multisequence MRI of the brain was obtained with and without IV contrast FINDINGS: No restricted diffusion to suggest acute or subacute infarct. Midline structures appear unremarkable. No acute intracranial hemorrhage, midline shift, abnormal extra-axial collection, hydrocephalus or i ntra-axial mass. Minimal involutional changes with mild scattered T2/FLAIR hyperintense foci througho ut the subcortical white matter of the cerebral hemispheres. No abnormal enhancement. Cerebral venous sinuses and major arterial flow voids appear patent. Trace left mastoid effusion. Mod erate mucosal thickening with air-fluid level within the right maxillary sinus. Indeterminate 1.3 cm T2 hyperintense lesion of the right parotid gland IMPRESSION: 1. No acute intracranial abnormality. 2. Mild scattered nonspecific T2/FLAIR hyperintense foci throughout the white matter may represent ch ronic microvascular ischemic disease. 3. No abnormal enhancement. 4. Moderate acute on chronic right maxillary sinus disease. 5. Indeterminate 1.3 cm right parotid lesion could be further evaluated with a nonemergent follow-up ultrasound. ACT 112: Negative or not required by law. The above report was generated using voice recognition software. It may contain grammatical, syntax o r spelling errors. Electronically signed by: Jadon Penn M.D. 09/08/2024 1:44 PM
--- NOTE | 2024-09-08 14:16 | Hospitalist Progress Note ---
Date of Service September 08, 2024 Assessment & Plan (1) Altered mental state: (2) Acute sinusitis: (3) Rhabdomyolysis: (4) Transaminitis: (5) Acute psychosis: Plan #Altered mental status #Acute Psychosis vs. Dissociative Fugue vs. Kassandra vs. Wernicke's Encephalopathy vs. Transient Global Amnesia - ED course: disoriented to place and time; disordered thinking; possible medical noncompliance -- Given 20 mg of Olanzapine PO and 3 mg of Lorazepam IV -- Drug urine screen (-) and viral panel (-) -- Head CT: chronic right maxillary sinusitis -- CXR: cardiomegaly with pulmonary congestion and possible atelectasis -- UA: notable for 4+ ketones - Psychiatry consulted - impression was that this does not seem to be a primary psychiatric issue - CTA head/MRI brain largely unremarkable - Attempting to consult [place] providers & contact ex- for corroboration - Olanzapine 20 mg QD - Thiamine 500 mg IV TID - B9 and B12: WNL - Appreciate CM assistance with dispo planning #Sinusitis - Seen in CT. Patient history unreliable. - Negative Biofire PCR - Augmentin 875mg PO BID #Rhabdomyolysis - Possibly due to limited PO intake and walking in the cold - CK 1022 on admission -- Downtrending 414 (09/07) #Transaminitis - No abdominal pain on admitting exam - Suspect related to rhabdomyolysis - INR and Plt: WNL - Statin restarted (09/07) VTE Prophylaxis - Lovenox 40mg SQ daily Diet -regular Disposition - med/tele Admission and Anticipated Discharge Date Admission Date: September 06, 2024 Supervising Physician Co-Signing Physician Notes I personally examined the patient and verified all alvarado points of history and exam, discussed case, and agree with decision making with Aaliyah Marcus MS4 and Dr Street More aware of what is going on. 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 Describes his home back in [place]. Reiterates . Notes he has 3 children that live out of state so they would not have seen him recently to be able to provide any collateral. Is worried about the status of his car. Vitals noted, in general he is awake disoriented but pleasant calm no distress. HEENT normocephalic atraumatic mucous membranes moist. Breathing unlabored no accessory muscle use good effort. Skin without rashes pallor or icterus. Neuro without focal deficits. Oriented to person, does not know place or situation confusion/altered mental statusbroad differentialdoes not appear to be manic, does not appear to be responding to external stimuli. Transient global amnesia considered but in my experience these are much more short-lived than his current episode. Wernicke/korsakoff considered and thiamine startedbut the improvement in his mentation pleads somewhat against that, would be very helpful to get collateral. Polypharmacy considered but he does not appear sedated/slurring/other findings that would be anticipated. Fugue state considered. appreciate psychiatry input. MRI brain for completeness. Given that we do not have a clear working diagnosis, may appreciate neurology insight to ensure there are no differentials we are overlooking. Kalpana Renee was seen at bedside. He recalls living in a house with three stories to enter. 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 He was particularly distressed about his car as he does not have a means of transportation otherwise. He asked if we could ask the police to locate his 2016 [employer] (white). I reassured him that the police indicated his car was undamaged when he was brought to the emergency department. Otherwise, he has no further questions, comments, or updates. This afternoon with Dr. Pozo and Dr. Street, he recalled having 3 children - 27, 24, and 13 years old. He has not received a call from his ex-. We will keep him posted if we hear back from his or health care personnel. He has no futher updates. Review of Systems Review of Systems: Per HPI Physical Exam Constitutional: Lying comfortably in bed In no apparent distress Respiratory: Lungs are clear to auscultation No wheezes, rhonchi, or crackles appreciated Conversational without shortness of breath Respiratory effort and rate appropriate Cardiovascular: Regular rate and rhythm No rubs, murmurs, or gallops appreciated S1 and S2 noted Psychiatric: Orientation: alert, oriented to person, oriented to place and oriented to time Eye Contact: good eye contact Motor Behavior: no abnormal motor movements Speech: normal rate/rhythm/volume of speech Affect: euthymic affect Thought Process: clear/coherent thought process Results & Data Results & Data Vital Signs (Past 12 Hours) Vital Signs Temp Pulse Resp BP Pulse Ox O2 Del Method 09/08/24 07:54 36.9 C 81 18 104/68 92 Room Air 09/08/24 07:15 Room Air Resident Activity Tracking Resident Involvement: Resident Care Provided Care Provided: Adult Hospital Medicine (1) Altered mental state Altered mental status type: disorientation Qualified Code(s): R41.0 - Disorientation, unspecified (2) Acute sinusitis Recurrence: non-recurrent Sinusitis location: maxillary Qualified Code(s): J01.00 - Acute maxillary sinusitis, unspecified (3) Rhabdomyolysis Rhabdomyolysis type: non-traumatic Qualified Code(s): M62.82 - Rhabdomyolysis
--- NOTE | 2024-09-08 14:17 | CT Scan Report ---
CT angio head w con CLINICAL HISTORY: amnesia TECHNIQUE: CT angiography of the head was performed following intravenous administration of iodinated contrast. Coronal and sagittal MIPS were obtained from the axial data set and were submitted for rev iew. Automated dose lowering techniques and/or adjustment according to patient size were utilized fo r this examination. All measurements were calculated based on NASCET criteria. CT DOSE: 155.81 mGy.cm Comparison: Comparison is made to CT head 09/06/2024 and MRI brain 09/08/2024 FINDINGS: CTA Head: The anterior and posterior cerebral circulations are patent. origin of the right pos terior cerebral artery is seen. IMPRESSION: No occlusion, hemodynamically significant stenosis, aneurysm, dissection, or arteriovenous malformati on in the major intracranial arteries. Assessment of stenosis of the internal carotid arteries is based on NASCET criteria. ACT 112: Negative or not required by law. Electronically signed by: Pratik Hanna M.D. 09/08/2024 2:16 PM
[2024-09-08] MEDS: ROSUVASTATIN CALCIUM 10 MG TAB PO SCH (14:45)
--- NOTE | 2024-09-08 18:14 | Billing Data ---
Date of Service September 08, 2024 Coding Level of Care Code 30586 SUB INP/OBS CARE 3MIN
[2024-09-09 06:57] LABS: BUN Creatinine Ratio 11.8 (10-20); Calcium 8.4 mg/dl (8.6-10.3); Potassium 3.5 mmol/L (3.5-5.1)
--- NOTE | 2024-09-09 13:10 | Discharge Summary ---
Date of Service September 09, 2024 Admission HPI Per Admitting Provider Víctor Pathak is a 54 year ol male who presents to the ER with altered mental state after being picked up by police wandering down [address]. He told triage he was driving from [place] to [facility] and drinking a lot of [employer]. He tells me he is the in the emergency room due to dry mouth as he was in the [facility] in [place]. When asked directly why he came to [place], [place] he tells me he just went for a drive. He is able to remember his medications of olanzapine and trazodone and tells me he has been taking them. He does remember he was taking gabapentin previously when prompted but he stopped as it wasn't working and he thinks he was on it for psoriasis. When asked about his doctors names he is able to tell me the name of his family physician Dr Durand. On review of external pharmacy list he appears to have picked up prescription for olanzapine, rosuvastatin and trazodone on September 04 in [place], [place] which appears to be his regular pharmacy store. His psychiatric medications are [facility]. I left a message on the answering system but there is no one picking up the phone at time of admission ([phone]). His family physician suspected to be Dr Leti Durand MD also in [place], [place] based on prior prescriptions for pregabalin (last picked up 30 day prescription in May for 50mg PO daily), gabapentin (prior to the pregabalin at 300mg PO TID) and terbinafine (prescription from January to March). Left message with PCP office ([phone]) in addition to call back. Admission Exam (Per Admitting) Constitutional WD/WN, vitals as above ENMT external ear and nose normal, oropharynx normal Respiratory normal respiratory effort, lungs clear to auscultation Cardiovascular RRR, no murmur, no edema Gastrointestinal (Abdomen) normal bowel sounds, soft, nontender, no hepatosplenomegaly Skin no rashes, warm and dry (no areas of cellulitis seen) Psychiatric Eye Contact: + fair eye contact Thought Process: + tangential thought process Discharge Data Consultations 09/06/24 11:54 ED Decision to Admit Stat 09/06/24 12:31 Consult Psychiatry Routine Hospital Course (1) Altered mental state: (2) Dissociative fugue: (3) Acute sinusitis: (4) Rhabdomyolysis: (5) Transaminitis: (6) Acute psychosis: Plan #Altered mental status #Likely Dissociative Fugue - ED course: disoriented to place and time; disordered thinking; possible medical noncompliance -- Given 20 mg of Olanzapine PO and 3 mg of Lorazepam IV -- Drug urine screen (-) and viral panel (-) -- Head CT: chronic right maxillary sinusitis -- CXR: cardiomegaly with pulmonary congestion and possible atelectasis -- UA: notable for 4+ ketones - Psychiatry consulted - impression was that this does not seem to be a primary psychiatric issue - CTA head/MRI brain largely unremarkable - Attempting to consult [place] providers & contact ex- for corroboration - [place] psychiatric case management called (09/09) endorsing psychiatric history; otherwise no insight why he came to [place] - Continue home Olanzapine 20 mg QD - Thiamine 500 mg IV TID - Unlikely Wernicke's encephalopathy given normal head imaging and prese ntation - Discontinued on discharge - B9 and B12: WNL - Appreciate CM assistance with dispo planning - CM organized ride for Mr. Alston to get to his car - Will call Mr. Alston later tonight to make sure he got home safely - Encouraged having friends/family checking in on him for several days following discharge - Did not restart lamotrigine due to unknown last day take - Consult with PCP or psychiatry outpatient regarding restarting #Sinusitis - Seen in CT. Patient history unreliable. - Negative Biofire PCR - Augmentin 875 mg PO BID - Completed course prior to discharge #Rhabdomyolysis - Possibly due to limited PO intake and walking in the cold - CK 1022 on admission -- Downtrending 414 (09/07) #Transaminitis - No abdominal pain on admitting exam - Suspect related to rhabdomyolysis - INR and Plt: WNL - Statin restarted (09/07) Disposition - home Supervising Physician Co-Signing Physician Notes I personally examined the patient and verified all alvarado points of history and exam, discussed case, and agree with decision making with Aaliyah Marcus MS4 and Dr Street Awake and alert. Still cannot recall how he got here, but remembers what is going on now/sinceand seems to have pretty good recall for the last day and a half now. Going back he is not quite sure when he last remembers things clearlybut working back to [place] and 's he is able to remember quite clearly that he spends and alone and predominantly slept. He also relates that he lost his job about 3 weeks ago getting fired. Vitals noted, in general he is awake and alert pleasant no distress. HEENT normocephalic atraumatic mucous membranes moist. Breathing unlabored no accessory muscle use good effort. Dr. Street performed a MOCA and the patient scored a 27 out of 30. confusion/altered mental statusbroad differentialdoes not appear to be manic, does not appear to be responding to external stimuli. Transient global amnesia considered but in my experience these are much more short-lived than his current episode. Wernicke/korsakoff considered and thiamine startedbut while we were not able to get a lot of collateral, what we could put together such as details about his home at up nicely, and he seemed to have good recall over the last 36 hours or so from herethis seems unlikely. Given that he came in with pressured speech/tangential speech per ERit is possible he was manic and the joseph improved with the additional medications given in the ERbut that kind of rapid resolution of joseph with essentially 1 extra dose of a medication he normally takes seems unlikely. Polypharmacy considered but he does not appear se dated/slurring/other findings that would be anticipated. Fugue state consideredand given that his last several weeks included what sounds to be a very lonely and depressed holiday season shortly after losing his jobcertainly is possible. We discussed the situation openly togetherthere will probably not be a concrete diagnosis but his workup has been extremely reassuring, and that seems to make risk of recurrence lowand in that respect it seems quite safe to get him home as long as he feels safewhich he does. Asked him to open up to anyone that he is very close with back home and at least ask them to check on him daily, and Dr. Street will be calling him later tonight to ensure he safely made at home. Dr. Vela was able to discuss with his home psychiatry office so they are aware of the situation and should be getting records and will be following up with him as an outpatient. Recommend outpatient PCP follow-up as well
--- NOTE | 2024-09-09 16:43 | Billing Data ---
Date of Service September 09, 2024 Coding Level of Care Code 98854 IN/OBS DISCH 30 MIN/LESS
== END 2024-09-09 14:27 | disposition home or self-care (01) | DRG 880 ==
LOC: ED 07:13 → EDINP 12:45 → SUATTDRO 12:45 → 3E 16:32